=== PATIENT | male | born 1955 | race Caucasian/White ===

== ENCOUNTER 2018-02-21 15:19 | Emergency (ER) | payer OTHER ==
[2018-02-21 15:51] VITALS: BP 120/86
--- NOTE | 2018-02-21 16:01 | UC ---
General HPI - HPI Summary HPI Summary: Patient states that he lost his voice about 2 weeks ago after having a sinus infection. He states the sinus infection has resolved except for a little clear postnasal drip. He reports that after losing his voice he had a procedure to assess his esophageal pressures and swallowing. He admits to history of reflux requiring omeprazole occasionally smokes cigars. He has no difficulty with swallow. - History of Current Complaint Chief Complaint: UCGeneralIllness Stated Complaint: LOST VOICE Time Seen by Provider: 02/21/18 15:45 Hx Obtained From: Patient Timing: Constant Pain Intensity: 0 Associated Signs & Symptoms: Negative: Cough, Chest Pain, Fever - Allergy/Home Medications Allergies/Adverse Reactions: Allergies Allergy/AdvReac Type Severity Reaction Status Date / Time Penicillins Allergy Intermediate Rash Verified 02/21/18 15:51 PMH/Surg Hx/FS Hx/Imm Hx Endocrine History: Diabetes, Dyslipidemia Cardiovascular History: Hypertension GI/ History: Gastroesophageal Reflux - Surgical History Surgical History: Yes Surgery Procedure, Year, and Place: R carpel tunnel. left shoulder rotator cuff 2013 - Family History Known Family History: Positive: None - Social History Occupation: Employed Full-time Alcohol Use: Occasionally Alcohol Amount: few drinks a week Substance Use Type: None Smoking Status (MU): Light Every Day Tobacco Smoker Type: Cigars Amount Used/How Often: occasional Household Exposure Type: Cigars - Immunization History Most Recent Tetanus Shot: unknown Vaccination Up to Date: Yes Review of Systems Constitutional: Negative Skin: Negative Eyes: Negative ENT: Sinus Congestion Respiratory: Negative Cardiovascular: Negative Gastrointestinal: Negative Genitourinary: Negative Motor: Negative Neurovascular: Negative Musculoskeletal: Negative Neurological: Negative Psychological: Negative Is Patient Immunocompromised?: No All Other Systems Reviewed And Are Negative: Yes Physical Exam Triage Information Reviewed: Yes Appearance: Well-Appearing Vital Signs: Initial Vital Signs Temp 97 F 02/21/18 15:40 Pulse 72 02/21/18 15:40 Resp 20 02/21/18 15:40 BP 120/86 02/21/18 15:40 Pulse Ox 100 02/21/18 15:40 Vital Signs Reviewed: Yes Eyes: Positive: Conjunctiva Clear ENT: Positive: Pharynx normal, TMs normal, Other - No stridor, difficulty with phonation or swallow.. Negative: Nasal congestion, Nasal drainage Neck: Positive: Supple, Nontender, No Lymphadenopathy Respiratory: Positive: Lungs clear, Normal breath sounds, No respiratory distress Cardiovascular: Positive: RRR, No Murmur Abdomen Description: Positive: Nontender, No Organomegaly, Soft Bowel Sounds: Positive: Present Musculoskeletal: Positive: ROM Intact Neurological: Positive: Alert Psychological: Positive: Age Appropriate Behavior Skin Exam: Normal Course/Dx - Course Course Of Treatment: Given patient's history of chronic reflux and smoking with this non-resolution of his laryngitis, I'm going to send him to ENT for follow- up for ongoing evaluation and treatment. The meantime, I'm going to treat him with a single dose of Decadron. Patient is requesting referral to ENT here in [place] thus he was provided with information for Dr. Shah - Differential Dx - Multi-Symptom Provider Diagnoses: prolonged laryngitis Discharge - Sign-Out/Discharge Documenting (check all that apply): Patient Departure All imaging exams completed and their final reports reviewed: No Studies - Discharge Plan Condition: Stable Disposition: HOME Patient Education Materials: Laryngitis (ED) Referrals: Ade Rg MD [Primary Care Provider] - If Needed Roly Shah MD [Medical Doctor] - As Soon As Possible - Billing Disposition and Condition Condition: STABLE Disposition: Home
[2018-02-21] MEDS ORDERED: Dexamethasone IV* 4 MG/ML 1 ML (4 MG) IM ONE (16:02)
== END 2018-02-21 16:17 | disposition home or self-care (01) ==
LOC: UCCORT 15:19
DX: J04.0 Acute laryngitis (principal); F17.290 Nicotine dependence, other tobacco product, uncomplicated; Z88.0 Allergy status to penicillin; E11.9 Type 2 diabetes mellitus without complications; I10 Essential (primary) hypertension
CPT/HCPCS: 99202; G0463; J1100

== ENCOUNTER 2018-11-13 07:39 | Emergency (ER) | payer OTHER ==
--- OUTSIDE RECORDS SUMMARY | 2018-11-13 07:49 | XMS REPORT | Continuity of Care Document ---
:1955 External Reference #:[id number] Author Name Ken Colin MD Address [address] [place] [address] Care Team Providers Name Role Phone Ade Rg M.D. Care Team Information Belt Sewer Unavailable Ade Rg M.D. Primary Care Physician Unavailable Payers Date Identification Numbers Payment Provider Subscriber Effective: 2014 Policy Number: [id number] Calijack Castro PayID: [id number] [address] [place] [address] Expires: 2011 Policy Number: [id number] [facility] Felipe Castro PayID: [id number] [address] [place] [address] Problems Active Problems Provider Date Diabetes mellitus Ken Colin MD Onset: 01/15/2015 Impotence of organic origin MARJORIE Patel C.U.N.P. Onset: 09/26/2017 Induratio penis plastica MARJORIE Patel C.U.N.P. Onset: 09/26/2017 Poor stream of urine MARJORIE Patel C.U.N.P. Onset: 09/26/2017 Nocturia MRAJORIE Patel C.U.N.P. Onset: 09/26/2017 Increased frequency of urination MARJORIE Patel C.U.N.P. Onset: 2017 Benign prostatic hyperplasia with MARJORIE Patel C.U.N.P. Onset: 2017 lower urinary tract symptoms Family History Date Family Member(s) Observation Comments General Unknown Father Unknown unknown Mother Unknown unknown Social History Type Date Description Comments Sex Unknown Marital Status Occupation [employer] Tobacco Use Reviewed: 11/01/18 Never Smoked Cigarettes occasionally smokes cigars while golfing Smoking Status Reviewed: 11/01/18 Never Smoked Cigarettes occasionally smokes cigars while golfing Allergies, Adverse Reactions, Alerts Active Allergies Reaction Severity Comments Date Penicillin 01/15/2015 Medications Active Medications SIG Qnty Indications Ordering Date Provider Potaba 6 pills qid 720caps Ken Villanueva 11/01/2018 500mg Capsules MD Cristi Vitamin E Ken Villanueva 12/28/2017 400Unit MD Cristi Capsules Sildenafil Citrate 2 to 5 by mouth one 60tabs Ken Villanueva 12/28/2017 20mg hour before sex MD Cristi Tablets Lisinopril Unknown 40mg Tablets Montelukast Sodium Nanavati, 10mg Digant MFelisaDFelisa Tablets Alogliptin Benzoate Nanavati, Diglori MFelisaDFelisa 25mg Tablets Atorvastatin Calcium Unknown 10mg Tablets Omeprazole Unknown 20mg Capsules DR Kernsfisergiozifredi Unknown 600mg Tablets Advair Diskus 1 puff twice a day Unknown 100-50mcg/Dose Aerosol Glipizide Unknown 5mg Tablets Cyanocobalamin 1 milliliters Unknown intramuscular every 1000mcg/ML Solution week pt states this is every week Zyrtec Allergy 1 by mouth every day Unknown 10mg Tablets History Medications Stendra use as needed for 2tabs Ken Colin, 09/26/2017 - 200mg Tablets sexual activity: 09/26/2017 samples Cialis 1 by mouth every 30tabs Ken Colin, 01/15/2015 - 5mg Tablets day, for bph 09/26/2017 symptoms Tradjenta Unknown - 5mg Tablets 09/26/2017 Metformin HCL Unknown - 1000mg 09/26/2017 Tablets Tramadol HCL Unknown - 50mg 09/26/2017 Tablets Lisinopril-Hydrochlo take 1 tablet by Unknown - rothiazide mouth once daily 10/31/2018 10-12.5mg Tablets Vital Signs Date Vital Result Comment 11/01/2018 8:54am Height 72 inches 6'0" Weight 180.00 lb Weight 81.648 kg BMI (Body Mass Index) 24.4 kg/m2 BP Systolic 142 mmHg BP Diastolic 96 mmHg Heart Rate 61 /min 12/28/2017 9:55am Post Void Residual ml 0 Bladder Scanner, Indication: nocturia 09/26/2017 3:22pm Height 70 inches 5'10" Weight 180.00 lb Weight 81.648 kg BMI (Body Mass Index) 25.8 kg/m2 BP Systolic 118 mmHg BP Diastolic 77 mmHg Heart Rate 64 /min Post Void Residual ml 24 Bladder Scanner 01/15/2015 9:27am Height 70 inches 5'10" Weight 173.00 lb Weight 78.473 kg BMI (Body Mass Index) 24.8 kg/m2 BP Systolic 107 mmHg BP Diastolic 69 mmHg Heart Rate 74 /min Results Test Date Facility Test Result H/L Range Note 230 Ua Routine 11/01/2018 [facility] Ua Glucose 100 mg/dL * REF TO DR ADDRESS ON ORDER FOR (315)- - Ua Protein Negative Ua Nitrite Negative Ua Leuko Negative Ua Blood Negative Ua Color Yellow Ua Ketones Negative Ua Clarity Clear Ua Specific Lee 1.015 1.003-1.030 Ua PH 5.0 5.0-7.5 Ua Bilirubin Negative Ua Urobilinogen 0.2 E.U./dL 0.0-1.0 230 Ua Routine 12/28/2017 [facility] Ua Glucose Negative REF TO DR ADDRESS ON ORDER FOR (315)- - Ua Protein Negative Ua Nitrite Negative Ua Leuko Negative Ua Blood Negative Ua Color Yellow Ua Ketones Negative Ua Clarity Clear Ua Specific Lee 1.015 1.003-1.030 Ua PH 6.0 5.0-7.5 Ua Bilirubin Negative Ua Urobilinogen 0.2 E.U./dL 0.0-1.0 Laboratory test 09/26/2017 Associated Rn Referral Total Psa 1.55 ng/mL 0.00-4.[address] [place] [id number] [phone] 230 Ua Routine 09/26/2017 [facility] Ua Glucose 100 mg/dL * REF TO DR ADDRESS ON ORDER FOR (353)- - Ua Protein Negative Ua Nitrite Negative Ua Leuko Negative Ua Blood Negative Ua Color Yellow Ua Ketones Negative Ua Clarity Clear Ua Specific Lee 1.015 1.003-1.030 Ua PH 7.0 5.0-7.5 Ua Bilirubin Negative Ua Urobilinogen 0.2 E.U./dL 0.0-1.0 CBC W/Diff 08/25/2017 Outside Facility Hemoglobin 15.4 (315)- - Hematocrit 45.0 CMP 08/25/2017 Outside Facility BUN - Urea Nitrogen 23 (315)- - Creatinine 1.5 High Calcium 10.1 Alkaline Phosphatase 44 Ast (Sgot) 20 Potassium 4.7 Alt (SGPT) 23 CMP 05/26/2017 Outside Facility BUN - Urea Nitrogen 19 (315)- - Creatinine 1.3 Calcium 9.8 Alkaline Phosphatase 50 Ast (Sgot) 17 Potassium 4.6 Alt (SGPT) 19 #Ua Routine 01/15/2015 [facility] Ua Glucose Negative REF TO DR ADDRESS ON ORDER FOR (315)- - Ua Protein Negative Ua Nitrite Negative Ua Leuko Negative Ua Blood Negative Ua Color Yellow Ua Ketones Negative Ua Clarity Clear Ua Specific Lee 1.015 1.003-1.030 Ua PH 5.0 5.0-7.5 Ua Bilirubin Negative Ua Urobilinogen 0.2 E.U./dL 0.0-1.0 [facility] 01/02/2015 Outside Facility BUN - Urea Nitrogen 49 High (315)- - Creatinine 1.9 High Calcium 10.0 Alkaline Phosphatase 43 Ast (Sgot) 15 Potassium 5.0 Alt (SGPT) 17 Laboratory test finding 01/02/2015 Outside Facility PSA Total 1.800 (315)- - Testosterone 205 Low Testosterone Free Direct 50 Laboratory test 09/24/2004 Laboratory [facility] 1 finding [facility] FX# [id number] <SEE NOTE> [phone] [address] [place] [address] Surgical Pathology Report Specimen(s) Received: A: Left vas deferens B: Right vas deferens Clinical Diagnosis and History: PRE-OP DX: Bilateral vasectomy Gross Description: A. In formalin labeled "left vas" is a cylindrically shaped white tissue measuring 0.4 x 0.2 cm. Entirely submitted in one block. B. In formalin labeled "right vas" is a cylindrically shaped white tissue measuring 0.4 x 0.2 cm. Entirely submitted in one block. 09/27/04 hilda tjc/sunita Diagnosis: A. Portion of left vas deferens, resection: Complete cross sectional segment of unremarkable vas deferens B. Portion of right vas deferens, resection: Complete cross sectional segment of unremarkable vas deferens Reported: 09/28/04 Electronically Signed Out By Skinny Waldrop MD [facility] ICD9 Code: A: V25.2 B:V25.2 Procedures Date Code Description Status 09/26/2017 80243 Bladder Scan, Post Voiding Residual Urine Completed 09/26/2017 67893151 Colonoscopy Completed 01/15/2015 62006 Bladder Scan, Post Voiding Residual Urine Completed 09/24/2004 44876 Vasectomy, Unilateral Or Bilateral (Separate Procedure) Completed Encounters Type Date Location Provider Dx Diagnosis Office Visit 11/01/2018 [facility] Ken/ Ken Colin, N48.6 Induration penis 8:45a [facility] plastica R35.0 Frequency of micturition R35.1 Nocturia N40.1 Benign prostatic hyperplasia with lower urinary tract symp N52.01 Erectile dysfunction due to arterial insufficiency Office Visit 12/28/2017 9:45a [facility] Ken Villanueva N48.6 Induration penis Medical/ Kay.M.Jamel Colin MD plastica Urology R35.0 Frequency of micturition R35.1 Nocturia N40.1 Benign prostatic hyperplasia with lower urinary tract symp N52.01 Erectile dysfunction due to arterial insufficiency Office Visit 09/26/2017 3:00p [facility] Jennifer Christopher, N40.1 Benign prostatic Medical/ A.M.P. ANP-BC C.U.N.P. 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/ Eliseo Lopez M.D. Urology Plan of Treatment Future Appointment(s):05/03/2019 8:15 am - KANWAL Patel-ELIESER C.U.N.PFelisa at [facility]/ [facility]
[2018-11-13 07:57] VITALS: BP 132/73
--- NOTE | 2018-11-13 08:04 | UC ---
Skin Complaint HPI - HPI Summary HPI Summary: tick bite right buttocks area x 3 days tick was removed by the pt. yesterday no fever, no chills, no joint or body aches, no rash - History of Current Complaint Chief Complaint: UCSkin Time Seen by Provider: 11/13/18 07:52 Stated Complaint: TICK Hx Obtained From: Patient Onset/Duration: Gradual Onset, Lasting Days - 3, Resolved Timing: Constant Onset Severity: Mild Current Severity: Mild Pain Intensity: 6 Location: Discrete - right buttocks Character: Pain, Redness Aggravating Factor(s): Touch Alleviating Factor(s): Nothing Associated Signs & Symptoms: Positive: Tenderness. Negative: Nausea, Vomiting, Weakness, Fever, Chills, Rash, Drainage, Bruising Related History: Insect Bite/Sting - tick bite - Allergy/Home Medications Allergies/Adverse Reactions: Allergies Allergy/AdvReac Type Severity Reaction Status Date / Time Penicillins Allergy Intermediate Rash Verified 11/13/18 07:50 Home Medications: Home Medications Alogliptin Benzoate [Alogliptin] 1 dose PO DAILY 11/13/18 [History Confirmed 07/03] Lisinopril TAB* [Prinivil TAB*] 20 mg PO DAILY 11/13/18 [History Confirmed 11/13] PMH/Surg Hx/FS Hx/Imm Hx Endocrine History: Diabetes Cardiovascular History: Hypertension Respiratory History: Asthma - Surgical History Surgical History: Yes Surgery Procedure, Year, and Place: R carpel tunnel. left shoulder rotator cuff 2014. linx procedure - Family History Known Family History: Positive: None, Diabetes - Social History Alcohol Use: Occasionally Alcohol Amount: few drinks a week Substance Use Type: None Smoking Status (MU): Light Every Day Tobacco Smoker Type: Cigars Amount Used/How Often: occasional Household Exposure Type: Cigars - Immunization History Most Recent Tetanus Shot: unknown Vaccination Up to Date: Yes Review of Systems All Other Systems Reviewed And Are Negative: Yes Constitutional: Positive: Negative Eyes: Positive: Negative ENT: Positive: Negative Respiratory: Positive: Negative Is Patient Immunocompromised?: No Physical Exam Triage Information Reviewed: Yes Appearance: Well-Appearing, No Pain Distress, Well-Nourished Vital Signs: Initial Vital Signs Temp 97.8 F 11/13/18 07:53 Pulse 57 11/13/18 07:53 Resp 16 11/13/18 07:53 BP 132/73 11/13/18 07:53 Pulse Ox 100 11/13/18 07:53 Vital Signs Reviewed: Yes Eye Exam: Normal Eyes: Positive: Conjunctiva Clear ENT: Positive: Normal ENT inspection, Hearing grossly normal, Pharynx normal Neck exam: Normal Neck: Positive: Supple, Nontender, No Lymphadenopathy Respiratory: Positive: Chest non-tender, Lungs clear, Normal breath sounds Cardiovascular: Positive: RRR, No Murmur, Pulses Normal Skin: Positive: Other - tick was removed by the pt. from the right buttocks , mild erythema of the area, Course/Dx - Diagnoses Provider Diagnosis: Tick bite of buttock Discharge - Sign-Out/Discharge Documenting (check all that apply): Patient Departure All imaging exams completed and their final reports reviewed: No Studies - Discharge Plan Condition: Stable Disposition: HOME Prescriptions: DOXYcycline CAP(*) [DOXYcycline 100MG CAP(*)] 200 mg PO DAILY #2 cap Patient Education Materials: Tick Bite (ED) Referrals: Ade Rg MD [Primary Care Provider] - If Needed - Billing Disposition and Condition Condition: STABLE Disposition: Home
== END 2018-11-13 08:08 | disposition home or self-care (01) ==
LOC: UCCORT 07:39
DX: T63.481A Toxic effect of venom of other arthropod, accidental (unintentional), initial encounter (principal); Y92.9 Unspecified place or not applicable; E11.9 Type 2 diabetes mellitus without complications; Z79.84 Long term (current) use of oral hypoglycemic drugs; I10 Essential (primary) hypertension; F17.210 Nicotine dependence, cigarettes, uncomplicated
CPT/HCPCS: 99212; G0463